=== PATIENT | female | born 1980 | race Caucasian/White ===

== ENCOUNTER 2020-08-16 09:44 | Outpatient (CLI) | payer BC, SELFPAY ==
[2020-08-16 10:20] LABS: Alanine Aminotransferase 17 U/L (4-35); Albumin Level 4.1 g/dL (3.5-5.1); Alkaline Phosphatase 72 U/L (38-126); Amylase 39 U/L (30-110); Aspartate Amino Transferase 23 U/L (14-36); Bilirubin,Total 0.4 mg/dL (0.2-1.3); Lipase 67 U/L (23-300)
== END 2020-08-16 09:45 | disposition home or self-care (01) ==
LOC: ANHSURGERY 09:46
PROVIDERS: PCP Physician Assistant; Visit Provider Surgery
DX: Z01.818 Encounter for other preprocedural examination (principal); K81.1 Chronic cholecystitis
CPT/HCPCS: 36415; 80076; 82150; 83690; 86850; 86900; 86901

== ENCOUNTER → 2020-08-20 02:42 | Outpatient (CLI) | payer BC, SELFPAY ==
[2020-08-20 21:05] LABS: SARS-CoV-2 RNA PCR Negative
== END ==
PROVIDERS: PCP Physician Assistant; Visit Provider Surgery
DX: Z01.812 Encounter for preprocedural laboratory examination (principal); Z20.822 Contact with and (suspected) exposure to COVID-19
CPT/HCPCS: C9803; U0003; U0005

== ENCOUNTER 2020-08-23 01:13 | Day surgery (SDC) | payer BC, SELFPAY ==
[2020-08-15 15:51] VITALS: BMI 40.3
--- NOTE | 2020-08-22 09:26 | WPDANESEPPF ---
Anes - Initial Pre Proc Eval Procedure: Operation Date: 08/23/20 10:30 Proposed Procedures p Laparoscopic Cholecystectomy - Daniel Mary MD Date/Time: 08/22/20 09:26 Surgeon: Daniel Mary MD Pre Op Diagnosis: A Calculous Cholecystitis Patient Data Age: 39 Gender: F Height: 1.57 m Weight: 100 kg Allergies Allergy/AdvReac Type Severity Reaction Status Date / Time No Known Allergies Allergy Verified 08/15/20 15:26 Home Medications Medication Instructions Recorded Confirmed Type multivitamin [Daily Multivitamin] 1 tablet PO DAILY 08/15/20 08/23/20 History Patient hx anesthesia problems: none Family hx anesthesia problems: none PMFSH Past Medical History Medical History GERD (gastroesophageal reflux disease) Surgical History Surgical History History of x2 Previous back surgery Family History Family History Grandparent Diabetes mellitus Cerebrovascular accident Hypertension Aneurysm Heart disease Father Hypertension Malignant neoplasm of prostate Mother Hypertension Aneurysm Sibling Fibromyalgia Rheumatic arteritis Social History Social History Smoking status: Never smoker Living arrangements: with family 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 Gender identity (if verbalized by the patient): Female Spiritual care concerns: No Anes - Eval Final PreProcedure Day of Procedure 08/22/20 09:26 Patient weight: morbidly obese Heart: regular rate and rhythm Lungs: clear to auscultation and normal air movement Airway: Mallampati scale class III Neurological: alert and oriented Last oral intake: >/= 8 hours ASA classification: III Emergent: no Anesthetic plan: proceed Anesthesia type and monitoring: general ETT and standard monitoring Informed Consent: The patient's anesthetic plan and its attendant risks and benefits were discussed with the patient/family/POA. Questions were solicited and answers provided to the satisfaction of the patient/family/POA.
[2020-08-23] VITALS (10 sets, daily range): BP systolic 103–126; BP diastolic 64–79; PULSE 61–96; RESP 13–20; TEMP 36.3–36.4; O2SAT 94–100
--- NOTE | 2020-08-23 08:10 | PM.SD2 ---
Same Day Admit/Disch: HPI History of Present Illness Chief complaint: Chronic cholecystitis, gallbladder polyps Narrative: Anahi Lizama is a 39 year old female who has been experiencing multiple episodes of right upper quadrant postprandial abdominal pain. The pain is aching and gnawing and sometimes radiates to her right shoulder. It is mostly associated with eating fatty or greasy foods. She had an abdominal ultrasound which showed multiple gallbladder polyps. One of the polyps was 7.6 mm in dimension. She has a strong family history of gallbladder disease in that both her mother and her sister of had to have cholecystectomy. The patient is taken to surgery now for chronic cholecystitis and laparoscopic cholecystectomy. 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 Gender identity (if verbalized by the patient): Female Spiritual care concerns: No Same Day Admit/Disch: Med Pre-admit Medications Home Medications Medication Instructions Recorded Confirmed Type multivitamin 1 tablet PO DAILY 08/15/20 08/23/20 History hydrocodone-acetaminophen 1 - 2 tablet PO Q6H PRN #7 tablet 08/23/20 Rx ketorolac 10 mg PO Q6H 4 Days #16 tablet 08/23/20 Rx Exam Const: General: comfortable, no acute distress, alert and awake HENMT: Head: normocephalic and atraumatic Mouth: Yes Normal oral and palatal mucosa present Eyes: Conjunctivae: conjunctivae normal Pupils: Equal, round and reactive pupils present EOM: EOMs intact bilaterally Neck: Neck: normal visual inspection, no lymphadenopathy and nontender Resp: Effort & Inspection: normal respiratory effort Auscultation: clear to auscultation bilaterally Cardio: Rate: regular rate Rhythm: regular rhythm Heart sounds: no gallops, no murmurs and no rubs GI: Inspection: non-distended, obesity and scar ( Pfannenstiel lower abdominal incision) GI Palp: Yes Soft to palpation, No Tenderness to palpation present (GI), No Hepatomegaly present and No Splenomegaly present Auscultation: normal bowel sounds and normoactive bowel sounds Skin: Lesions: no lesions Rashes: no rashes Neuro: General: no focal motor deficits and CN's II-XI intact bilaterally Cranial nerves: Yes Equal, round and reactive pupils present, Yes Bilaterally intact EOM present, Yes facial symmetry and Yes Midline tongue present Speech: normal speech Motor exam (neuro): 5/5 motor strength present throughout and Motor abnormalities not present Extrem: General: no clubbing, cyanosis or edema and edema Psych: Affect: normal affect Thought process: Normal thought process present Insight: Good insight present (Psych) DS: Summary Time Spent with Patient Time attestation: Total time spent providing and/or coordinating discharge services: DS: Admitting Diagnosis Admitting Diagnosis Admitting Diagnosis: chronic cholecystitis multiple gallbladder polyps morbid obesity DS: Discharge Diagnosis Discharge Diagnosis (1) Chronic cholecystitis: Code(s): K81.1 - Chronic cholecystitis Status: Acute (2) Gallbladder polyp: Code(s): K82.4 - Cholesterolosis of gallbladder Status: Acute (3) BMI 40.0-44.9, adult: Code(s): Z68.41 - Bod
--- NOTE | 2020-08-23 08:13 | WPDHPUPDATE1 ---
History and Physical Update Update Date/Time: 08/23/20 08:13 History and Physical has been reviewed, including an updated exam of the patient. There are NO changes in the patient's condition. Risks, benefits, and alternatives have been discussed and questions answered. Patient agrees to proceed with procedure.
[2020-08-23] MEDS: ACETAMINOPHEN 500 MG TABLET 1000 MG PO (08:32)
[2020-08-23] MEDS: LACTATED RINGERS 1,000 ML 30 ML IV CONT ×2 (09:15→10:44)
[2020-08-23] MEDS: KETOROLAC 15 MG/ML VIAL (*BKC) IV PUSH (09:20)
[2020-08-23] MEDS: ceFAZolin 2 GM/D5W 50 ML 2 GM/50 ML BAG IVPB (09:49)
[2020-08-23] MEDS: BUPIVACAINE/EPINEPHRINE 0.5% 30 ML VIAL INFILTRATE (10:31)
[2020-08-23] MEDS: ONDANSETRON INJ 4 MG/2 ML VIAL IV PUSH (11:02)
--- NOTE | 2020-08-23 11:06 | P.OP_ITS ---
Procedure Note - Detailed Date of procedure: 08/23/20 Pre-op diagnosis: Chronic cholecystitis, gallbladder polyps Chronic cholecystitis, gallbladder polyps Post-op diagnosis: same Procedure performed: Laparoscopic cholecystectomy Description of procedure: The patient was taken to surgery and induced into general anesthesia. The abdomen was prepped and draped. Trocars were placed in the usual fashion using 0.5% Marcaine with epinephrine and applied Medical optical trocars. A 5 millimeter camera was used. The gallbladder was decompressed with a laparoscopic aspirator. The cholecystotomy was c losed with a Vicryl endo-loop. The gallbladder was retracted anterosuperiorly. Traction was placed on the infundibulum. The cystic duct and cystic artery were dissected out very clearly. The gallbladder was dissected off the liver at its lower 3rd. Critical view was achieved. We securely clipped and divided the cystic duct and cystic artery. The gallbladder was then further retracted so that the peritoneal attachments to the liver could be divided. Once the gallbladder was freed entirely, it was placed in an Endo-Catch bag and retrieved through the 10 11 epigastric trocar site. The epigastric trocar was then replaced. We reviewed the right upper quadrant. It was irrigated and suctioned. All looked good with no evidence of bleeding or bile leakage. We evacuated CO2 and removed the trocar sleeves. Skin wounds were closed with subcuticular 4 O Monocryl skin suture. The wounds were dressed with Exofin surgical adhesive. Patient was awakened and taken to recovery in good conditio n. Sponge and needle counts were correct x2. Anesthesia: GETA and local (0.5% Marcaine with epinephrine) Surgeon: Daniel Mary MD Director [employer]: [employer] Estimated blood loss (mL): 5 Drains: No Packing: No Pathology: yes (Gallbladder) Complications: None Condition: stable Disposition: PACU Findings: Mild inflammation, multiple polyps. No biliary ductal dilatation, no liver abnormalities.
[2020-08-23] MEDS: SCOPOLAMINE 1.5 MG PATCH TRANSDERM (11:15)
[2020-08-23] MEDS: diphenhydrAMINE HCl INJ 50 MG/ML VIAL 25 MG IV PUSH (11:16)
--- NOTE | 2020-08-23 11:46 | SUR.PHASEI ---
PT STATES NO PAIN AND NAUSEA IS BETTER. STATES SHE IS JUST UNCOMFORTABLE IN STRETCHER. TAKING TO OUTPT TO GET IN RECLINER.
[2020-08-23] MEDS: oxyCODONE HCL (*CRX) 5 MG TAB IR PO (12:24)
== END 2020-08-23 13:17 | disposition home or self-care (01) ==
PROVIDERS: PCP Physician Assistant; Visit Provider Surgery
PROC: 0FT44ZZ Resection of Gallbladder, Percutaneous Endoscopic Approach (ICD-10-PCS; CPT 47562; principal; 2020-08-23 09:45)
DX: K81.1 Chronic cholecystitis (principal); K21.9 Gastro-esophageal reflux disease without esophagitis; E66.01 Morbid (severe) obesity due to excess calories; Z68.41 Body mass index [BMI] 40.0-44.9, adult
CPT/HCPCS: 47562; 88304; A9270; C1713; J0690; J1100; J1200; J1885; J2250; J2405; J2704; J2710; J3010; J7120

== ENCOUNTER 2022-04-15 12:53 | Outpatient (CLI) | payer BC, SELFPAY ==
[2022-04-15 13:16] LABS: Hematocrit 38.2 % (37.0-47.0); Hemoglobin 12.6 g/dL (12.0-15.0)
== END 2022-04-15 12:54 | disposition home or self-care (01) ==
LOC: ANHSURGERY 12:56
PROVIDERS: Anesthesiology; PCP Physician Assistant; Visit Provider Obstetrics & Gynecology
DX: D64.9 Anemia, unspecified (principal); Z01.818 Encounter for other preprocedural examination
CPT/HCPCS: 36415; 85014; 85018

== ENCOUNTER 2022-04-18 01:54 | Day surgery (SDC) | payer BC, SELFPAY ==
[2022-04-11 10:28] VITALS: BMI 42.1
--- NOTE | 2022-04-11 10:43 | PC.NURSE ---
PRE-OP INSTRUCTIONS, PLEASE READ CAREFULLY Report to the Outpatient Waiting Room, entrance under the green pavilion located off [facility], at time _1215_ on date _04/18/22_. Planned Procedure Time: _2:15 PM_. Time changes happen often and if your time is changed the preop area will call you the afternoon before. - You and your visitor will be asked to self-screen and do not enter if you have any COVID symptoms. - We encourage only one visitor and NO visitors under age 16 are allowed at this time. Your visitor will receive communication by the phone number that is given day of service. - The patient visitor is requested to social distance or may leave the building when not with patient due to restrictions. - A mask is required within the hospital. Patients may have clear liquids (water, carbonated beverages, clear teas, apple juice) until 3 hours prior to surgery (1115 AM) with a maximum of 20 ounces. - No food from midnight until time of surgery Take the following medications with a SIP of water the morning of surgery: __NONE__ Medications to discontinue per physician __N/A__, Date to take last dose Please no make-up, nail yakut, hairspray, perfume, deodorant, or body powder the day of surgery. No jewelry (including any body piercings) or valuables the day of surgery, leave them at home. Please take a shower or bath the night before, or the morning of, surgery with an antibacterial soap. Wear comfortable, loose fitting clothing. - Jewelry must be removed prior to entering the operating room. Rings and piercings that are not removed may be cut off. - The hospital will not accept responsibility for valuables. - Please leave all valuables, including medications, at home the day of surgery. If you are going home after surgery, a licensed auto carrier driver must drive you home. - NO public transportation without another adult. - We recommend that an adult stay with you for 24 hours following discharge. - We also recommend that you do not drive, make important decision, drink alcoholic beverages, or take any drugs that were not prescribed by your health care provider for at least 24 hours after your discharge time. Follow any additional instructions given to you from your surgeon. If you or anyone in your household have experienced Covid symptoms in the past week, please notify your surgeon or the nurse liaison at the phone number below for possible testing. Telephone instructions given to ____PT and asked if any additional questions and then verbalized understanding. Patient advised to call surgeon office or pre surgery nurse liaison [phone] if any additional questions.
--- NOTE | 2022-04-17 07:55 | PM.IMHP ---
H&P: HPI History of Present Illness Date/Time: 04/17/22 07:55 Chief Complaint: AUB Narrative: Anahi is a 41yo P2002, who presents for HSC/D&C. She reports her cycles are normally regular. She reports her cycles are very heavy with antoyn sized clots 3/7 days. She has a lot of cramping as well. Does have a h/o x2. In office EMB showed multiple endometrial and endocervical polyps. She also had an abnormal pap smear, but colpo showed normal biopsies (just needs repeat pap in 1 year). She reports a lot of issues with hormones and not sure about trying anything hormonal; does want to? proceed with HSC/D&C. Review of Systems Review of Systems: All systems reviewed & are unremarkable except as noted in HPI and below PMFSH Past Medical History Medical History ASCUS with positive high risk HPV GERD (gastroesophageal reflux disease) Surgical History Surgical History History of x2 Hx laparoscopic cholecystectomy Previous back surgery Family History Family History Grandparent Diabetes mellitus Cerebrovascular accident Hypertension Aneurysm Heart disease Father Hypertension Malignant neoplasm of prostate Mother Hypertension Aneurysm Sibling Fibromyalgia Rheumatic arteritis Social History Social History Smoking status: Never smoker Second hand tobacco smoke exposure: No Alcohol intake: current Alcohol use details: STATES VERY RARELY - COUPLE TIMES A YEAR Substance use: never Substance use type: does not use 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 Gender identity (if verbalized by the patient): Female Sexual Orientation (if Verbalized by the Patient): Straight or Heterosexual Spiritual care concerns: No Meds Home Medications and Allergies Home Medications Medication Instructions Recorded Confirmed Type escitalopram oxalate 5 mg tablet 5 mg PO DAILY 01/23/22 04/11/22 History (Lexapro) clobetasol 0.05 % topical cream 1 applic topical BID PRN vulvar 01/27/22 04/11/22 Rx itching 2 weeks #60 grams ferrous sulfate 325 mg (65 mg 325 mg PO DAILY 04/11/22 04/11/22 History iron) tablet (iron) Allergies Allergy/AdvReac Type Severity Reaction Status Date / Time No Known Allergies Allergy Verified 04/11/22 10:27 Exam Const: General: cooperative, comfortable, no acute distress and obese Resp: Effort & Inspection: normal respiratory effort Cardio: Rate: regular rate GI: Inspection: normal to inspection GI Palp: Yes abdominal tenderness and Yes Soft to palpation : Other: deferred to OR Skin: General skin exam: normal color Neuro: General: patient oriented x3 Extrem: General: normal to inspection Psych: Appearance: grossly normal Affect: normal affect Attitude: cooperative Assessment and Plan Assessment and plan (1) Abnormal uterine bleeding due to endometrial polyp: Code(s): N93.9 - Abnormal uterine and vaginal bleeding, unspecified; N84.0 - Polyp of corpus uteri Status: Acute Plan - Proceed with hysteroscopy with dilation and curettage - Risks and benefits explained in detail
--- NOTE | 2022-04-18 11:44 | WPDHPUPDATE1 ---
History and Physical Update Update Date/Time: 04/18/22 11:44 History and Physical has been reviewed, including an updated exam of the patient. There are NO changes in the patient's condition. Risks, benefits, and alternatives have been discussed and questions answered. Patient agrees to proceed with procedure.
[2022-04-18 12:29] VITALS: BP 131/79; PULSE 81; RESP 16; TEMP 36.6; O2SAT 100
--- NOTE | 2022-04-18 12:42 | WPDANESEPPF ---
Anes - Initial Pre Proc Eval Procedure: Operation Date: 04/18/22 14:15 Proposed Procedures p Hysteroscopy Dilation and Curettage - Gisele Taylor MD Date/Time: 04/18/22 12:42 Surgeon: Gisele Taylor MD Pre Op Diagnosis: abnormal uterine bleeding Patient Data Age: 41 Gender: F Height: 1.57 m Weight: 104.54 kg Allergies Allergy/AdvReac Type Severity Reaction Status Date / Time No Known Allergies Allergy Verified 04/11/22 10:27 Home Medications Medication Instructions Recorded Confirmed Type escitalopram oxalate 5 mg tablet 5 mg PO DAILY 01/23/22 04/11/22 History (Lexapro) clobetasol 0.05 % topical cream 1 applic topical BID PRN vulvar 01/27/22 04/11/22 Rx itching 2 weeks #60 grams ferrous sulfate 325 mg (65 mg 325 mg PO DAILY 04/11/22 04/11/22 History iron) tablet (iron) Patient hx anesthesia problems: post op nausea/vomiting and other (blurred vision from scopolamine patch) Family hx anesthesia problems: none Results Review: All pre-operative results and documents have been reviewed as part of the pre-operative evaluation. [facility] Past Medical History Medical History Anxiety ASCUS with positive high risk HPV GERD (gastroesophageal reflux disease) Surgical History Surgical History History of x2 Hx laparoscopic cholecystectomy Previous back surgery Family History Family History Grandparent Diabetes mellitus Cerebrovascular accident Hypertension Aneurysm Heart disease Father Hypertension Malignant neoplasm of prostate Mother Hypertension Aneurysm Sibling Fibromyalgia Rheumatic arteritis Social History Social History Smoking status: Never smoker Second hand tobacco smoke exposure: No Alcohol intake: current Alcohol use details: STATES VERY RARELY - COUPLE TIMES A YEAR Substance use: never Substance use type: does not use Living arrangements: with family 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 Gender identity (if verbalized by the patient): Female Sexual Orientation (if Verbalized by the Patient): Straight or Heterosexual Spiritual care concerns: No Anes - Eval Final PreProcedure Day of Procedure 04/18/22 12:42 Patient weight: morbidly obese Heart: regular rate and rhythm Lungs: clear to auscultation Airway: Mallampati scale class II Neurological: alert and oriented Last oral intake: >/= 8 hours ASA classification: III Emergent: no Anesthetic plan: proceed Anesthesia type and monitoring: general GIVS and standard monitoring Results Review: All pre-operative results and documents have been reviewed as part of the pre-operative evaluation. Informed Consent: The patient's anesthetic plan and its attendant risks and benefits were discussed with the patient/family/POA. Questions were solicited and answers provided to the satisfaction of the patient/family/POA.
[2022-04-18] MEDS: ACETAMINOPHEN 500 MG TABLET 1000 MG PO (12:55)
[2022-04-18] MEDS: LACTATED RINGERS 1,000 ML 30 ML IV CONT (13:03)
[2022-04-18] MEDS: KETOROLAC 30 MG/ML VIAL (*BKC) IV PUSH (15:04)
--- NOTE | 2022-04-18 15:06 | P.OP_ITS ---
Procedure Note - Detailed Date of Procedure 04/18/22 Pre-op Diagnosis abnormal uterine bleeding Post-op Diagnosis Same (endometrial polyps) Procedure Performed Hysteroscopy with dilation and curettage Surgeon Gisele Taylor MD Anesthesia MAC Findings Profusely thickened/polypoid enodmetrium Description of Procedure Anahi was taken to the operating room where she was placed under sedation without complications. She was then prepped and draped in the usual sterile fashion in the dorsal lithotomy position with her legs in low Julio stirrups. A time-out was performed and no perioperative antibiotics were indicated. A bivalve speculum was placed within the vagina where the cervix was easily identified. The anterior lip of the cervix was grasped with a single-tooth tenaculum. The cervix was then serially dilated to allow for the hysteroscope. The hyste roscope was advanced into the uterine cavity with the above findings noted. A curettage was then performed until a good uterine cry was felt throughout the uterus, a significant amount of tissue was removed. Good hemostasis was noted. All instruments were removed from the vagina. Sponge, lap, instrument, and needle counts were correct at the end of the procedure. Patient was awoken from anesthesia and taken to recovery with plans of same-day discharge home. Estimated Blood Loss 5 Pathology Yes (endometrial curettings) Complications No immediate complications Condition Stable Disposition Same day [facility] Billing Surgery - Charge Forward: Surgery Billing
[2022-04-18] MEDS: diphenhydrAMINE HCl INJ 50 MG/ML VIAL 12.5 MG IV PUSH (15:08)
[2022-04-18 15:10] VITALS: BP 110/73; PULSE 77; RESP 20; O2SAT 100
[2022-04-18 15:40] VITALS: BP 136/82; PULSE 61; RESP 16
[2022-04-18 16:05] VITALS: BP 127/83; PULSE 59; RESP 16
== END 2022-04-18 16:25 | disposition home or self-care (01) ==
PROVIDERS: PCP Physician Assistant; Visit Provider Obstetrics & Gynecology
PROC: 0U5B8ZZ Destruction of Endometrium, Via Natural or Artificial Opening Endoscopic (ICD-10-PCS; CPT 58563; principal; 2022-04-18 14:15)
DX: N93.9 Abnormal uterine and vaginal bleeding, unspecified (principal); N84.0 Polyp of corpus uteri; K21.9 Gastro-esophageal reflux disease without esophagitis
CPT/HCPCS: 58558; 88305; A9270; J1200; J1885; J2250; J2704; J3010; J7030; J7120

== ENCOUNTER 2022-08-19 19:40 | Emergency (ER) | payer BC, SELFPAY ==
--- NOTE | ~2022-08-19 | XR_ITS ---
Portable chest x-ray Comparison: None Clinical History: Chest pain Findings: Lungs are clear, without focal consolidation or pleural effusion. Cardiomediastinal silho uette is unremarkable. Bones and soft tissues are unremarkable. Impression: Clear lungs. Reviewed, dictated and finalized at location M. Impression: Clear lungs.
[2022-08-19 20:04] VITALS: BP 161/82; PULSE 107; RESP 16; TEMP 36.7; O2SAT 100
--- NOTE | 2022-08-19 20:41 | ECG_ITS ---
Measurements Intervals [place] Rate: 91 P: 36 VA: 159 QRS: 32 QRSD: 88 T: -4 QT: 352 QTc: 434 Interpretive Statements SINUS RHYTHM LOW QRS VOLTAGE IN PRECORDIAL LEADS BORDERLINE ST-T WAVE ABNORMALITY- INFERIOR LEADS BORDERLINE ECG NO PREVIOUS ECG AVAILABLE FOR COMPARISON Electronically Signed On 08-19-2022 21:36:12 CDT by Eduardo Galeano D.O.
[2022-08-19 22:41] VITALS: BP 136/89; PULSE 90; RESP 12; O2SAT 99
[2022-08-20 01:40] VITALS: BP 142/81; PULSE 84; RESP 16; O2SAT 100
--- NOTE | 2022-08-20 01:46 | PC.NURSE ---
pt c/o l shoulder pain since yesterday. states started off as muscle pain but then radiated down her l arm. states pain has subsided but now has a rojas. denies any cp. denies any injury.
--- NOTE | 2022-08-20 02:07 | ED.GENADULT ---
HPI - General Adult General Chief complaint: Extremity Problem,Nontraumatic Stated complaint: left arm pain Time Seen by Provider: 08/20/22 01:33 History of Present Illness HPI narrative: Patient 41-year-old female who presents emerged part with chief complaint of left arm pain. Patient reports that earlier this evening she had pain in the left arm radiate up to the neck. Patient states that it was aching worse with movement and improved with rest. Patient reports no prior history of cardiac disease reports only history of anemia. Patient states that she had no chest pain with this denies diaphoresis denies shortness of breath patient reports the pain is gradually improved as she has been in the emergency department Related Data Home Medications Medication Instructions Recorded Confirmed escitalopram oxalate 5 mg tablet 5 mg PO DAILY 01/23/22 05/06/22 (Lexapro) ferrous sulfate 325 mg (65 mg 325 mg PO DAILY 04/11/22 05/06/22 iron) tablet (iron) Allergies Allergy/AdvReac Type Severity Reaction Status Date / Time No Known Allergies Allergy Verified 08/20/22 01:39 Review of Systems Review of Systems: A 10 system review of systems was completed on the patient and is negative except for what is stated in the HPI. Nursing and ancillary documentation was reviewed. [facility] Past Medical History Medical History Anxiety ASCUS with positive high risk HPV GERD (gastroesophageal reflux disease) Surgical History Surgical History History of x2 History of gynecologic surgery H scope - D&C History of hysteroscopy (04/18/22) hscope D&C Benign Hx laparoscopic cholecystectomy Previous back surgery Family History Family History Grandparent Diabetes mellitus Cerebrovascular accident Hypertension Aneurysm Heart disease Father Hypertension Malignant neoplasm of prostate Mother Hypertension Aneurysm Sibling Fibromyalgia Rheumatic arteritis Social History Social History Smoking status: Never smoker Second hand tobacco smoke exposure: No Alcohol intake: current Alcohol use details: STATES VERY RARELY - COUPLE TIMES A YEAR Substance use: never Substance use type: does not use Living arrangements: with family Occupation/Education: occupation 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 HEAD: Normocephalic, atraumatic. EYES: PERRLA and EOMI. ENT: Nares clear, no rhinorrhea or epistaxis. Mucous membranes moist. NECK: Supple. CHEST: Clear to auscultation. No respiratory distress. HEART: Regular rate and rhythm. No murmur heard. Normal peripheral pulses. ABDOMEN: Soft, nontender, nondistended, normal active bowel sounds. EXTREMITIES: Normal range of motion. No edema. SKIN: Warm, dry, no rash. NEURO: No focal deficits. Alert and oriented x3. PSYCH: Normal mood and affect. Course Course Emergency Course: Differential diagnosis includes musculoskeletal pain, ACS, electrolyte abnormality, anemia, EKG is sinus rhythm rate of [address] elevation or ST depression Chest x-ray shows no focal abnormalities Laboratory studies are within normal limits hemoglobin is 13.4 hematocrit is 40.8 troponin was negative Vital Signs Vital signs: Vital Signs Temperature 36.7 C 08/19/22 20:04 Pulse Rate 107 H 08/19/22 20:04 Respiratory Rate 16 08/19/22 20:04 Blood Pressure 161/82 H 08/19/22 20:04 Pulse Oximetry 100 08/19/22 20:04 Oxygen Delivery Room Air 08/19/22 20:04
[2022-08-20 02:08] LABS: Basophils Absolute Auto 0.1 K/mm3 (0.0-0.1); Basophils Percent Auto 0.5 % (0.2-1.2); Eosinophils Absolute Auto 0.3 K/mm3 (0-0.3); Eosinophils Percent Auto 2.7 % (0-4.4); Hematocrit 40.8 % (37.0-47.0); Hemoglobin 13.4 g/dL (12.0-15.0); Immature Granulocyte Absolute 0.02 K/mm3 (0.00-0.031); Immature Granulocyte Percent A 0.2 % (0-0.5); Lymphocytes Absolute Auto 2.67 K/mm3 (0.9-3.2); Lymphocytes Percent Auto 25.2 % (18.3-44.2); Mean Corpuscular HGB Conc 32.8 g/dl (32-36); Mean Corpuscular Volume 91.5 fl (80-100); Monocytes Absolute Auto 0.7 K/mm3 (0.1-0.6); Monocytes Percent Auto 6.2 % (2.6-8.5); Neutrophils Absolute Auto 6.9 K/mm3 (1.3-6.7); Neutrophils Percent Auto 65.2 % (45.5-73.1); Platelet Count Result 227 k/mm3 (150-375); Red Blood Count 4.46 M/mm3 (4.2-5.4); Red Cell Distribution Width 12.6 % (11.5-14.5); White Blood Count 10.6 K/mm3 (4.5-10.0)
[2022-08-20 02:22] LABS: Alanine Aminotransferase 32 U/L (6-35); Albumin Level 4.3 g/dL (3.5-5.1); Alkaline Phosphatase 87 U/L (38-126); Anion Gap 6 mmol/L (8-16); Aspartate Amino Transferase 31 U/L (14-36); Bilirubin,Total 0.5 mg/dL (0.2-1.3); Blood Urea Nitrogen 14 mg/dL (7-17); Calcium 8.8 mg/dL (8.4-10.2); Carbon Dioxide 24 mmol/L (22-30); Chloride 107 mmol/L (98-107); Estimated CRCL calculation 121 ml/min; Estimated Glomerular Filt Rate > 60; Glucose 91 mg/dL (65-110); Magnesium 2.2 mg/dL (1.6-2.3); Potassium 3.8 mmol/L (3.4-5.0); Sodium 137 mmol/L (137-145)
[2022-08-20 02:32] LABS: Troponin I < 0.012 ng/mL (0.000-0.034)
[2022-08-20 03:18] VITALS: BP 112/61; PULSE 80; RESP 16; O2SAT 98
== END 2022-08-20 03:20 | disposition home or self-care (01) ==
PROVIDERS: Emergency Provider Emergency Medicine; PCP Physician Assistant
DX: M25.519 Pain in unspecified shoulder (principal); Z86.2 Personal history of diseases of the blood and blood-forming organs and certain disorders involving the immune mechanism; R94.31 Abnormal electrocardiogram [ECG] [EKG]; F41.9 Anxiety disorder, unspecified; K21.9 Gastro-esophageal reflux disease without esophagitis
CPT/HCPCS: 36415; 71045; 80053; 83735; 84484; 85025; 93005; 99283